=== PATIENT | female | born 1975 | race Caucasian/White ===

== ENCOUNTER 2019-06-04 09:41 | Emergency (ER) | payer BC, SELFPAY ==
--- NOTE | 2019-06-04 09:47 | ED.GENADULT ---
HPI - General Adult General Chief complaint: Urogenital-Female Stated complaint: pos uti Time Seen by Provider: 06/04/19 10:04 Source: patient Mode of arrival: ambulatory Limitations: no limitations Related Data Home Medications Medication Instructions Recorded Confirmed acetaminophen [Tylenol Arthritis 650 mg PO Q8H 02/24/19 06/04/19 Pain] albuterol sulfate [ProAir HFA] 2 puff INHALATION QID PRN 02/24/19 06/04/19 cholecalciferol (vitamin D3) 2,000 unit PO QID 02/24/19 06/04/19 [Vitamin D3] loratadine [Claritin] 10 mg PO DAILY 02/24/19 06/04/19 montelukast [Singulair] 10 mg PO DAILY 02/24/19 06/04/19 multivitamin 1 tablet PO DAILY 02/24/19 06/04/19 estradiol 0.1 mg DAILY 06/04/19 06/04/19 omeprazole 40 mg PO DAILY 06/04/19 06/04/19 topiramate 50 mg DAILY 06/04/19 06/04/19 Allergies Allergy/AdvReac Type Severity Reaction Status Date / Time adhesive tape Allergy Unknown BLISTERS Verified 06/04/19 09:55 Sulfa (Sulfonamide Allergy Unknown HIVES Verified 06/04/19 09:55 Antibiotics) Review of Systems Review of Systems: Narrative: CONSTITUTIONAL: Denies fever, chills, or sweats. EYES: Denies visual changes, redness, or discharge. ENT: Denies rhinorrhea, congestion, sore throat, or otalgia. CARDIOVASCULAR: Denies chest pain, palpitations, or edema. RESPIRATORY: Denies cough or dyspnea. GASTROINTESTINAL: Denies abdominal pain, nausea, vomiting, or diarrhea. GENITOURINARY: Denies dysuria or hematuria. SKIN: Denies rash or itching. MUSCULOSKELETAL: Denies back pain, joint pain, or myalgia. NEUROLOGIC: Denies headache, numbness, or weakness. PSYCHIATRIC: Denies anxiety or depression. [facility] Past Medical History Medical History Arthritis Asthma GERD (gastroesophageal reflux disease) RUDY (obstructive sleep apnea) Super obesity Social History Social History Gender identity (if verbalized by the patient): Female Comments At the time of my signature I agree with nursing past medical history, surgical, social, and family history. There is no relevant family history pertinent to the presenting complaint. Exam Narrative: Exam Narrative: GENERAL: Well-appearing, well-nourished, and in no acute distress. HEAD: Normocephalic, atraumatic. EYES: PERRLA and EOMI. ENT: Nares clear, no rhinorrhea or epistaxis. Mucous membranes moist. NECK: Supple. No lymphadenopathy CHEST: Clear to auscultation. No respiratory distress. HEART: Regular rate and rhythm. No murmur heard. Normal peripheral pulses. ABDOMEN: Soft, nontender, nondistended, normal active bowel sounds. EXTREMITIES: Normal range of motion. No edema. SKIN: Warm, dry, no rash. NEURO: No focal deficits. Alert and oriented x3. Course Vital Signs Vital signs: Vital Signs Temperature 36.0 C L 06/04/19 09:54 Pulse Rate 60 06/04/19 09:54 Respiratory Rate 16 06/04/19 09:54 Blood Pressure 133/69 06/04/19 09:54 Pulse Oximetry 100 06/04/19 09:54 Temperature 36.0 C L 06/04/19 09:54 Pulse Rate 60 06/04/19 09:54 Respiratory Rate 16 06/04/19 09:54 Blood Pressure 133/69 06/04/19 09:54 Pulse Oximetry 100 06/04/19 09:54 Vital signs reviewed. Medical Decision Making Differential Diagnosis Differential Diagnosis: Differential diagnosis: Uncomplicated lower UTI, uncomplicated UTI, pyelonephritis Vital Signs Vital Signs: Vital Signs Temperature 36.0 C L 06/04/19 09:54 Pulse Rate 60 06/04/19 09:54 Respiratory Rate 16 06/04/19 09:54 Blood Pressure 133/69 06/04/19 09:54 Pulse Oximetry 100 06/04/19 09:54 Temperature 36.0 C L 06/04/19 09:54 Pulse Rate 60 06/04/19 09:54 Respiratory Rate 16 06/04/19 09:54 Blood Pressure 133/69 06/04/19 09:54 Pulse Oximetry 100 06/04/19 09:54 Lab Data Labs: Urine Glucose Negative Reference Range: Negative Urine Bilirubin
[2019-06-04 09:54] VITALS: BP 133/69; PULSE 60; RESP 16; TEMP 36; O2SAT 100
== END 2019-06-04 10:15 | disposition home or self-care (01) ==
PROVIDERS: Emergency Provider Nurse Practitioner Family; PCP Internal Medicine
DX: R30.0 Dysuria (principal); M19.90 Unspecified osteoarthritis, unspecified site; J45.909 Unspecified asthma, uncomplicated; K21.9 Gastro-esophageal reflux disease without esophagitis; G47.33 Obstructive sleep apnea (adult) (pediatric); E66.9 Obesity, unspecified
CPT/HCPCS: 81003; 87086; 99213; G0463

== ENCOUNTER 2019-12-31 16:23 | Emergency (ER) | payer OTHER, SELFPAY ==
--- NOTE | ~2019-12-31 | XR_ITS ---
XR knee LT 3V DATE: 12/31/2019 16:45 INDICATION: Fall. Left knee injury, pain TECHNIQUE: 3 views COMPARISON: None FINDINGS: No fracture or dislocation or joint effusion is detected. There is prominent tricompartment osteoarthritis, involving particularly the medial and patellofemora l compartments. IMPRESSION: Tricompartment osteoarthritis Reviewed, dictated and finalized at location A.
--- NOTE | 2019-12-31 16:34 | ED.LOWEXIN ---
HPI - Extremity Injury (Lower) General Chief Complaint: Extremity Injury, Lower Stated Complaint: left knee pain fell Time Seen by Provider: 12/31/19 16:34 Source: patient and RN notes reviewed Mode of arrival: ambulatory Limitations: no limitations History of Present Illness HPI Narrative: 44-year-old female with history of obesity presents with concern for chronic left knee pain. Reports she has been seeing an orthopedic doctor for several years for her knee pain and receiving cortisone injections. Reports she recently changed doctors, and has an appointment to see a new orthopedic doctor later this week. Reports in the meantime she fell injuring her left knee. 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 Reports she cannot take NSAIDs due to having gastric bypass surgery. Reports she has been using ice. Denies any immobilization, compression, elevation. Reports she has been taking Tylenol for pain. She denies any bruising, reports swelling MD complaint: knee injury Related Data Home Medications Medication Instructions Recorded Confirmed acetaminophen [Tylenol Arthritis 650 mg PO Q8H 02/24/19 06/04/19 Pain] albuterol sulfate [ProAir HFA] 2 puff INHALATION QID PRN 02/24/19 06/04/19 cholecalciferol (vitamin D3) 2,000 unit PO QID 02/24/19 06/04/19 [Vitamin D3] loratadine [Claritin] 10 mg PO DAILY 02/24/19 06/04/19 montelukast [Singulair] 10 mg PO DAILY 02/24/19 06/04/19 multivitamin 1 tablet PO DAILY 02/24/19 06/04/19 estradiol 0.1 mg DAILY 06/04/19 06/04/19 omeprazole 40 mg PO DAILY 06/04/19 06/04/19 topiramate 50 mg DAILY 06/04/19 06/04/19 bupropion HCl mg PO 12/31/19 lorazepam 12/31/19 lorazepam 12/31/19 Allergies Allergy/AdvReac Type Severity Reaction Status Date / Time adhesive tape Allergy Unknown BLISTERS Verified 06/04/19 09:55 Sulfa (Sulfonamide Allergy Unknown HIVES Verified 06/04/19 09:55 Antibiotics) Review of Systems Review of Systems: Narrative: CONSTITUTIONAL: Denies malaise, chills, sweats, or fever. CARDIOVASCULAR: Denies chest pain, palpitations, or edema. RESPIRATORY: Denies cough or dyspnea. SKIN: Denies bruising, redness MUSCULOSKELETAL: Reports left knee pain NEUROLOGIC: Denies numbness, weakness All systems reviewed & are unremarkable except as noted in HPI and below PMFSH Past Medical History Medical History (Updated 12/31/19 @ 17:03 by Jillian Peterson NP) Arthritis Asthma GERD (gastroesophageal reflux disease) RUDY (obstructive sleep apnea) Super obesity Social History Social History Gender identity (if verbalized by the patient): Female Comments At time of signature, agree with nursing past medical, surgical, social and family history. There is no relevant family history pertinent to the presenting complaint Exam Narrative: Exam Narrative: GENERAL: Well-appearing, well-nourished, and in no acute distress. HEAD: Normocephalic EYES: PERRLA, conjunctivae clear NECK: Supple. CHEST: Speaks in full sentences. No respiratory distress. HEART: Regular rate and rhythm. Normal and equal peripheral pulses. EXTREMITIES: Left knee, left lower leg has normal strength and sensation, normal range of motion. No edema or ecchymosis. 5/5 strength with knee flexion and extension. Normal sensation with sensitivity to light touch and pain. Generalized tenderness. No open wounds, no skin tenting, no devitalized tissue or atrophy, no trophic changes, no obvious deformity, alignment normal, nearby joints and structures intact. Distal pulses palpable and equal bilaterally, skin warm, dry, pink. Capillary refill less than 3 seconds. SKIN: Warm, dry, no rash. NEURO: Alert and oriented x3. PSYCH: Normal mood and affect Course Course Emergency Course: Patient is aware of diagnosis, understands and agrees to treatment plan. Anticipatory
[2019-12-31 16:35] VITALS: BP 136/73; PULSE 77; RESP 20; TEMP 36.1; O2SAT 100
[2019-12-31 16:37] VITALS: BP 136/73; PULSE 77; RESP 20; TEMP 36.1; O2SAT 100
== END 2019-12-31 17:07 | disposition home or self-care (01) ==
PROVIDERS: Emergency Provider Nurse Practitioner
DX: M25.562 Pain in left knee (principal); M19.90 Unspecified osteoarthritis, unspecified site; J45.909 Unspecified asthma, uncomplicated; K21.9 Gastro-esophageal reflux disease without esophagitis; E66.9 Obesity, unspecified; Z68.42 Body mass index [BMI] 45.0-49.9, adult; Z98.84 Bariatric surgery status; G47.33 Obstructive sleep apnea (adult) (pediatric)
CPT/HCPCS: 73562; 99213; G0463

== ENCOUNTER 2020-03-19 00:32 | Outpatient (CLI) | payer OTHER, SELFPAY ==
[2020-03-19 19:42] LABS: SARS-CoV-2 RNA PCR Negative
== END 2020-03-19 00:33 | disposition home or self-care (01) ==
LOC: ANHCOVIDDT 00:32
PROVIDERS: PCP Internal Medicine; Visit Provider Podiatrist Foot & Ankle Surgery
DX: Z01.812 Encounter for preprocedural laboratory examination (principal); Z20.822 Contact with and (suspected) exposure to COVID-19
CPT/HCPCS: C9803; U0003

== ENCOUNTER 2020-03-22 00:44 | Day surgery (SDC) | payer OTHER, SELFPAY ==
[2020-03-13 15:11] VITALS: BMI 51.6
--- NOTE | ~2020-03-22 | XR_ITS ---
EXAMINATION: XR surgery orthopedic EXAM DATE: 03/22/2020 11:46 INDICATION: 5th metatarsal head resection left foot. TECHNIQUE: Fluoroscopy used during XR surgery orthopedic performed by Dr. Alli Sen JR MD. The DAP for this procedure was 0.21 cGycm2. FINDINGS: There is surgical defect, with resection of the left 5th metatarsal head. Correlate with procedure note. IMPRESSION: Fluoroscopy used during left foot surgery. Reviewed, dictated and finalized at location A. [employer]
--- NOTE | 2020-03-22 07:12 | WPDHPUPDATE1 ---
History and Physical Update Update Date/Time: 03/22/20 07:12 History and Physical has been reviewed, including an updated exam of the patient. There are NO changes in the patient's condition. Risks, benefits, and alternatives have been discussed and questions answered. Patient agrees to proceed with procedure.
--- NOTE | 2020-03-22 08:01 | WPDANESEPPF ---
Anes - Initial Pre Proc Eval Procedure: Operation Date: 03/22/20 12:00 Proposed Procedures p Fifth Metatarsal Head Resection Left Foot - Alli Sen JR, MD Date/Time: 03/22/20 08:01 Surgeon: Alli Sen JR, MD Pre Op Diagnosis: Carley's Bunion Left Foot Patient Data Age: 44 Gender: F Height: 1.68 m Weight: 145.15 kg Allergies Allergy/AdvReac Type Severity Reaction Status Date / Time Sulfa (Sulfonamide Allergy Severe HIVES Verified 03/22/20 09:51 Antibiotics) adhesive tape AdvReac Intermediate BLISTERS Verified 03/22/20 09:51 Home Medications Medication Instructions Recorded Confirmed Type acetaminophen [Tylenol Arthritis 650 mg PO Q8H 02/24/19 03/22/20 History Pain] albuterol sulfate [ProAir HFA] 2 puff INHALATION QID PRN 02/24/19 03/22/20 History cholecalciferol (vitamin D3) 2,000 unit PO BID 02/24/19 03/22/20 History [Vitamin D3] loratadine [Claritin] 10 mg PO DAILY 02/24/19 03/22/20 History montelukast [Singulair] 10 mg PO DAILY 02/24/19 03/22/20 History multivitamin 1 tablet PO DAILY 02/24/19 03/13/20 History omeprazole 40 mg PO DAILY 06/04/19 03/13/20 History topiramate 50 mg PO BID 06/04/19 03/13/20 History bupropion HCl 300 mg PO HS 12/31/19 03/22/20 History lorazepam 2 mg PO TID 12/31/19 03/22/20 History Patient hx anesthesia problems: none Family hx anesthesia problems: none PMFSH Past Medical History Medical History (Updated 03/21/20 @ 11:41 by Jose Ramon Taylor DO) Anxiety Arthritis Asthma BMI 45.0-49.9, adult BMI 50.0-59.9, adult Depression GERD (gastroesophageal reflux disease) RUDY (obstructive sleep apnea) Osteoarthritis of left knee Super obesity Family History Family History Mother Diabetes mellitus Father Hypertension Cerebrovascular accident Cancer Social History Social History Smoking status: Never smoker Alcohol intake: never Living arrangements: other Additional occupation/education comments: [employer] Gender identity (if verbalized by the patient): Female Spiritual care concerns: No Anes - Eval Final PreProcedure Day of Procedure 03/22/20 08:01 Patient weight: super morbidly obese Heart: regular rate and rhythm Lungs: clear to auscultation and normal air movement Airway: Mallampati scale class II Neurological: alert and oriented Last oral intake: >/= 8 hours ASA classification: III Emergent: no Anesthetic plan: proceed Anesthesia type and monitoring: general LMA and standard monitoring Informed Consent: The patient's anesthetic plan and its attendant risks and benefits were discussed with the patient/family/POA. Questions were solicited and answers provided to the satisfaction of the patient/family/POA.
[2020-03-22 09:43] VITALS: BP 124/73; PULSE 61; RESP 20; TEMP 36.4; O2SAT 100
[2020-03-22] MEDS: LACTATED RINGERS 1,000 ML 30 ML IV CONT (10:50)
[2020-03-22] MEDS: ceFAZolin 3 GM/D5W 100 ML 100 ML IVPB (11:17)
[2020-03-22] MEDS: LIDOCAINE HCL 2% LOCAL INJ 20 ML VIAL 10 ML INFILTRATE (11:29)
[2020-03-22] MEDS: BUPIVACAINE HCL 0.5% PF 30 ML VIAL 10 ML INFILTRATE (11:29)
[2020-03-22 11:50] VITALS: BP 127/88; PULSE 61; RESP 18; O2SAT 100
--- NOTE | 2020-03-22 11:56 | PM.PROC ---
Procedure Note - Detailed Date of procedure: 03/22/20 Pre-op diagnosis: Carley's Bunion Left Foot Post-op diagnosis: same Procedure performed: Fifth metatarsal head resection left foot Anesthesia: GLMA and local Surgeon: Alli Sen JR, MD Estimated blood loss (mL): 1 Drains: No Packing: No Pathology: none sent Complications: No immediate complications Condition: stable Disposition: same day Findings: Under mild sedation, the patient was brought to the operating room, placed on the operating table in the supine position. A pneumatic ankle tourniquet was placed about the patient's ankle. Following general anesthesia, I performed a proximal fifth metatarsal Carl Block. The foot was then scrubbed, prepped, and draped in the usual aseptic manner. An Esmarch bandage was then used to examine the patient's foot and pneumatic ankle tourniquet was then inflated. Surgery began in the following manner. Attention was directed to the dorsal lateral aspect of the fifth metatarsal head of the left foot where a 2 cm incision was made just lateral to the extensor digitorum longus tendon to the fifth digit. The incision was continued deep down through the subcutaneus tissues using sharp and blunt dissection. All bleeders were cauterized as necessary. A full-length periosteal incision was made overlying the fifth metatarsal distally. A McGlamry Elevator was used to free the plantar structures to the fifth metatarsal head. Next, a sagittal bone saw was used to make a transverse osteotomy starting along the dorsal aspect of the surgical neck of the 5th metatarsal extending plantarly. After this osteotomy was completed, the head of fifth metatarsal was removed from the operative site and placed on the back table. All rough edges were smoothed out with a bone rasp and rongeur. The wound site was then flushed with copious amounts of sterile saline. Fluoroscopy was used to make sure that no rough edges nor remnants of bone remained and also to make sure that adequate bone resection was performed. Next, the periosteum and capsular structures overlying the 5th metatarsophalangeal joints were reapproximated with 2-0 Vicryl. Next, subcutaneous structures were reapproximated and coapted utilizing 4-0 Vicryl. Next, the skin was reapproximated and coapted utilizing 4-0 Monocryl in running subcuticular suture fashion technique. Upon completion of the procedure, the incision was dressed with Steri-Strips, Adaptic, 4 x 4's, Kerlix, and Coban. The pneumatic ankle tourniquet was then deflated and a prompt hyperemic response noted to all digits of the foot. A surgical shoe was then applied. The patient did very well with the procedure and the anesthesia. She was transferred to the recovery room with vital signs stable and vascular status intact to all toes of the affected foot. Following a period of postoperative monitoring, the patient will be discharged home on the following written and oral postoperative instructions: 1. Keep the dressing clean, dry, and intact. Use a cast protector bag with showers. 2. The patient should use a surgical shoe for ambulation postoperatively. 3. The patient should ice and elevate the affected foot when at rest. 4. The patient to contact Dr. Sen for all postop care and if any problems arise. 5. Prescriptions were written for Percocet 5/325 dispensed 40 to be taken 1 p.o. q.4 to 6 hours as needed for severe pain.
[2020-03-22 12:20] VITALS: BP 125/83; PULSE 62; RESP 20; O2SAT 100
[2020-03-22 12:50] VITALS: BP 141/84; PULSE 55; RESP 20
[2020-03-22] MEDS: oxyCODONE/ACETAMINOPHEN (*CRX) 5-325 MG TABLET 1 TABLET PO (12:53)
[2020-03-22] MEDS: fentaNYL CITRATE INJ (*CRX) 100 MCG/2 ML VIAL 25 MCG IV PUSH ×4 (12:54→13:25)
[2020-03-22 13:20] VITALS: BP 143/78; PULSE 57; RESP 20
--- NOTE | 2020-03-22 13:49 | SUR.PHASEII ---
1340; PT AWAKE AND ALERT. STATES PAIN TOLERABLE AND READY TO GO HOME.
== END 2020-03-22 13:49 | disposition home or self-care (01) ==
PROVIDERS: PCP Internal Medicine; Visit Provider Podiatrist Foot & Ankle Surgery
PROC: (CPT 28104; principal; 2020-03-22 12:00)
DX: M21.622 Bunionette of left foot (principal); Z79.51 Long term (current) use of inhaled steroids; F41.9 Anxiety disorder, unspecified; M19.90 Unspecified osteoarthritis, unspecified site; J45.909 Unspecified asthma, uncomplicated; F32.9 Major depressive disorder, single episode, unspecified; K21.9 Gastro-esophageal reflux disease without esophagitis; G47.33 Obstructive sleep apnea (adult) (pediatric); E66.01 Morbid (severe) obesity due to excess calories; Z68.43 Body mass index [BMI] 50.0-59.9, adult
CPT/HCPCS: 28110; A9270; C9803; J0690; J2250; J2405; J2704; J3010; J7120; U0003

== ENCOUNTER 2024-06-17 11:45 | Emergency (ER) | payer OTHER, SELFPAY ==
--- NOTE | ~2024-06-17 | XR_ITS ---
EXAMINATION: XR foot RT min 3V DATE: 06/17/2024 12:20 INDICATION: Blunt trauma to the right foot TECHNIQUE: Dorsoplantar, two oblique and lateral views of the right foot were obtained. COMPARISON: 02/20/2017 FINDINGS: Bone alignment is normal. Interval healing of the previously seen dorsal cortical avulsion fracture a t the navicula. No acute fracture. Mild polyarticular osteoarthritis involving the first metatarsopha langeal, the naviculocuneiform and multiple tarsometatarsal and interphalangeal joints. Moderate-size d Achilles and plantar calcaneal spurs. IMPRESSION: 1. Degenerative changes at the right foot including mild polyarticular osteoarthritis and moderate-si zed calcaneal enthesophytes. No acute osseous abnormality. Reviewed, dictated and finalized at location A. IMPRESSION: 1. Degenerative changes at the right foot including mild polyarticular osteoart hritis and moderate-sized calcaneal enthesophytes. No acute osseous abnormality .
[2024-06-17 12:06] VITALS: BP 176/84; PULSE 67; RESP 16; TEMP 36.3; O2SAT 100
--- NOTE | 2024-06-17 12:51 | ED.LOWEXIN ---
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 Patient has pain to the right dorsal foot and to the right great toe area with bruising and swelling noted. Patient reports that she had previous fracture to her right foot in 2018. Patient reports pain with movement of foot and with attempted weight bearing, pedal pulse palpable to right foot.Patient has had gastric sleeve procedure and can not take any Ibuprofen or NSAIDS. Onset (ago): day(s) (last evening at 2200) Injury: Right: foot (dorsal right foot) and toes (great toe area) Type of Injury: blunt Place: home Severity scale (1-10): 9 Treatments prior to arrival: cold therapy and other (elevation and Tylenol) Related Data Home Medications ?Medication ?Instructions ?Recorded ?Confirmed ?Last Taken ?Type acetaminophen 650 mg 650 mg PO Q8H 02/24/19 04/17/24 03/21/20 History tablet,extended release (Tylenol Arthritis Pain) albuterol sulfate 90 mcg/actuation 2 puff inhalation QID PRN 02/24/19 04/17/24 1 Day Ago History aerosol inhaler (ProAir HFA) Shortness Of Breath Or Wheezing ~03/01/19 cholecalciferol (vitamin D3) 50 2,000 unit PO BID 02/24/19 04/17/24 03/17/20 History mcg (2,000 unit) capsule (Vitamin D3) loratadine 10 mg tablet (Claritin) 10 mg PO DAILY 02/24/19 04/17/24 03/22/20 History montelukast 10 mg tablet 10 mg PO DAILY 02/24/19 04/17/24 03/21/20 History (Singulair) multivitamin 1 tablet PO DAILY 02/24/19 04/17/24 3 Days Ago History ~02/27/19 omeprazole 40 mg capsule,delayed 40 mg PO DAILY 06/04/19 04/17/24 Unknown History release topiramate 50 mg tablet 50 mg PO BID 06/04/19 04/17/24 Unknown History bupropion HCl 300 mg 24 hr tablet, 300 mg PO HS 12/31/19 04/17/24 03/21/20 History extended release lorazepam 2 mg tablet 2 mg PO TID 12/31/19 04/17/24 03/22/20 07:45 History estradiol 2 mg tablet 2 mg PO DAILY 01/03/24 04/17/24 Unknown History nifedipine 30 mg tablet,extended 30 mg PO DAILY 01/03/24 04/17/24 Unknown History release rimegepant 75 mg disintegrating 75 mg PO ONCE PRN 04/17/24 04/17/24 Unknown History tablet (Nurtec ODT) Allergies Allergy/AdvReac Type Severity Reaction Status Date / Time Sulfa (Sulfonamide Allergy Severe HIVES Verified 06/17/24 12:02 Antibiotics) adhesive tape AdvReac Intermediate BLISTERS Verified 06/17/24 12:02 Review of Systems Review of Systems: CONSTITUTIONAL: Denies fever, chills, or sweats. EYES: Denies visual changes, redness, or discharge. ENT: Denies rhinorrhea, congestion, sore throat, or otalgia. CARDIOVASCULAR: Denies chest pain, palpitations, or edema. RESPIRATORY: Denies cough or dyspnea. GASTROINTESTINAL: Denies abdominal pain, nausea, vomiting, or diarrhea. GENITOURINARY: Denies dysuria or hematuria. SKIN: Denies rash or itching. MUSCULOSKELETAL: Denies back pain, Reports pain to the dorsal right foot and great toe region after having a scooter fall on her foot last night at 2200. swelling and ecchymosis noted., or myalgia. NEUROLOGIC: Denies headache, numbness, or weakness. PSYCHIATRIC: Reports history of anxiety or depression. All systems reviewed & are unremarkable except as noted in HPI and below PMFSH Past Medical History Medical History (Updated 06/19/24 @ 12:09 by Constance Pandey NP) Hx of migraines Hypertension Contusion of right foot Depression Anxiety BMI 50.0-59.9, adult Osteoarthritis of left knee BMI 45.0-49.9, adult Super obesity Arthritis GERD (gastroesophageal reflux disease) RUDY (obstructive sleep apnea) Asthma Surgical History Surgical History (Updated 06/19/24 @ 11:52 by Constance Pandey NP) History of tonsillectomy H/O shoulder surgery right [place] teeth extracted H/O: hysterectomy H/O gastric sleeve Family History Family History Mother Diabetes mellitus Father Hypertension Cerebrovascular accident Cancer Social History Social History Smoking status: Never smoker Alcohol intake: never Substance use: unknown Do You Feel Safe in your Home?: Yes Lack of Transportation: No Lack of Food: Never True Current Housing: I Have Housing Concerned About Future Housing: No Difficulty Paying Gas/Electric Bills: YES Difficulty Paying for Meds: YES Currently Unemployed: No Education: Trade/Vocational Certificate Difficulty w/ Childcare or Family Care: No Living arrangements: other Occupation/Education: occupation Additional occupation/education comments: [employer] Gender identity (if verbalized by the patient): Female Spiritual care concerns: No Comments At time of signature, agree with nursing past medical, surgical, social and family history. There is no relevant family history pertinent to the presenting complaint Exam Narrative: GENERAL: Well-appearing, well-nourished,morbid obese, and in some acute distress related to her foot pain. HEAD: Normocephalic, atraumatic. EYES: PERRLA and EOMI. ENT: Nares clear, no rhinorrhea or epistaxis. Mucous membranes moist.TM's normal, throat pink with tonsils absent NECK: Supple. no lymphadenopathy CHEST: Clear to auscultation. No respiratory distress.no cough or congestion noted SAO2 100% on room air HEART: Regular rate and rhythm. No murmur heard. Normal peripheral pulses. ABDOMEN: Soft, nontender, nondistended, normal active bowel sounds. EXTREMITIES: Normal range of motion. No edema.Exception noted to right dorsal foot and great toe region with pain swelling and ecchymosis from blunt trauma to her foot, pedal pulse palpable right foot, denies any tingling or numbness, pain with movement of right foot and reports inability to bear full weight to right foot. SKIN: Warm, dry, no rash. NEURO: No focal deficits. Alert and oriented x3. Course Course Emergency Course: Patient is aware of diagnosis, understands and agrees to treatment plan.? Anticipatory guidance given.? Patient agrees to follow-up as directed and is aware of reasons to seek care at the emergency department. Portions of this record may have been created with voice recognition software Level of Care: Express Care Visit Vital Signs Vital signs: Vital Signs Temperature 36.3 C L 06/17/24 12:06 Pulse Rate 67 06/17/24 12:06 Respiratory Rate 16 06/17/24 12:06 Blood Pressure 176/84 H 06/17/24 12:06 Pulse Oximetry 100 06/17/24 12:06 Temperature 36.3 C L 06/17/24 12:06 Pulse Rate 67 06/17/24 12:06 Respiratory Rate 16 06/17/24 12:06 Blood Pressure 176/84 H 06/17/24 12:06 Pulse Oximetry 100 06/17/24 12:06 Reviewed MDM - Extremity Injury (Lower) Differential Diagnosis Differential diagnosis: Likely fracture of toe and other (foot fracture, contusion to right foot, pain right foot) Medical Records Attestation: I reviewed the patient's medical records. Imaging Data Attestation: I personally reviewed and interpreted this imaging study as follows: My impression: Degenerative changes to right foot including mild polyarticular osteoarthritis and moderate sized calcaneal enthesophytes. No fracture Radiologist's impression: [facility] [address] [place] [address] XRay Report Signed Patient: Yumiko Chowdhury : 1975 MR#: [id number] Age: 48 Acct:[id number] Loc: [facility] ADM Date: 06/17/24Attending Dr: Ordering Physician: Constance Pandey APRN Date of Service: 06/17/24 Procedure(s): XR foot RT min 3V Accession Number(s): [id number] cc: aWnder, Jackson Trimble MD; Constance Pandey APRN~ EXAMINATION: XR foot RT min 3V DATE: 06/17/2024 12:20 INDICATION: Blunt trauma to the right foot TECHNIQUE: Dorsoplantar, two oblique and lateral views of the right foot were obtained. COMPARISON: 02/20/2017 FINDINGS: Bone alignment is normal. Interval healing of the previously seen dorsal cortical avulsion fracture at the navicula. No acute fracture. Mild polyarticular osteoarthritis involving the first metatarsophalangeal, the naviculocuneiform and multiple tarsometatarsal and interphalangeal joints. Moderate-sized Achilles and plantar calcaneal spurs. IMPRESSION: 1. Degenerative changes at the right foot including mild polyarticular osteoarthritis and moderate-sized calcaneal enthesophytes. No acute osseous abnormality. Reviewed, dictated and finalized at location A. Please be advised this is a medical document. It is intended for [id number] communication. It is written in medical language and may contain unfamiliar abbreviations or verbiage. Medical documents are intended to carry relevant information, facts as evident, and the clinical opinion of the practitioner at the time of the encounter. This report may have been done utilizing a voice recognition system. Attempts have been made to correct errors. However, there may be uncorrected grammatical, spelling, and recognition errors present. The file time of this note does not necessarily represent the time of service. Dictated By: Alton Torres MD 06/17/24 1222 Signed By: <Electronically signed by Alton Torres MD in OV> Critical Care Time Critical Care Time Critical Care Time: No Discharge Plan Discharge Clinical Impression: Contusion of foot, right Qualifiers: Encounter type: initial encounter Qualified Code(s): S90.31XA - Contusion of right foot, initial encounter Patient Disposition: Home Condition: Stable Instructions: Antibiotic Form, Contusion in Adults (ED) Additional Instructions: Elastic wrap or orthopedic splint as directed for comfort for the next 5-7 days Walker or crutches as directed for the next few days Tylenol for lesser pain Use the medication as provided for severe pain--caution each tablet contains 325 mg of Tylenol--the maximum dose of Tylenol is 4000 mg in 24 hours. 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 Follow-up with PCP in 7-10 days or sooner if needed Follow up with PCP soon in regards to your blood pressure which is elevated above threshold for referral. Blood pressure above 120/80 may indicate pre-hypertension. 176/84 Patient Language: Portuguese Prescriptions: New hydrocodone-acetaminophen 7.5-325 mg tablet 1 tablet PO Q6H PRN (Reason: pain) Qty: 10 0RF No Action lorazepam 2 mg tablet 2 mg PO TID bupropion HCl 300 mg tablet extended release 24 hr 300 mg PO HS omeprazole 40 mg capsule,delayed release(DR/EC) 40 mg PO DAILY topiramate 50 mg tablet 50 mg PO BID estradiol 2 mg tablet 2 mg PO DAILY nifedipine 30 mg tablet extended release 30 mg PO DAILY Nurtec ODT 75 mg tablet,disintegrating 75 mg PO ONCE PRN Rx Instructions: as a single dose acetaminophen [Tylenol Arthritis Pain] 650 mg Tablet Extended Release 650 mg PO Q8H multivitamin Tablet 1 tablet PO DAILY montelukast [Singulair] 10 mg Tablet 10 mg PO DAILY albuterol sulfate [ProAir HFA] 90 mcg/actuation Hfa Aerosol Inhaler 2 puff INHALATION QID PRN (Reason: Shortness Of Breath Or Wheezing) loratadine [Claritin] 10 mg Tablet 10 mg PO DAILY cholecalciferol (vitamin D3) [Vitamin D3] 50 mcg (2,000 unit) Capsule 2,000 unit PO BID Follow-up/Referrals: Wander,Jackson Trimble MD [Primary Care Provider] - Stand Alone Forms: Work/School Release IP Time of Disposition: 13:13 Quality [place] Coma Scale Eyes: Open Verbal: Oriented and Alert Motor: Follows Commands [place] Coma Total Score: 15
== END 2024-06-17 13:23 | disposition home or self-care (01) ==
PROVIDERS: Emergency Provider Registered Nurse; PCP Internal Medicine
DX: S90.31XA Contusion of right foot, initial encounter (principal); S90.111A Contusion of right great toe without damage to nail, initial encounter; W20.8XXA Other cause of strike by thrown, projected or falling object, initial encounter; I10 Essential (primary) hypertension; K21.9 Gastro-esophageal reflux disease without esophagitis; J45.909 Unspecified asthma, uncomplicated; M17.12 Unilateral primary osteoarthritis, left knee; F41.9 Anxiety disorder, unspecified; F32.A Depression, unspecified; E66.01 Morbid (severe) obesity due to excess calories; Z68.43 Body mass index [BMI] 50.0-59.9, adult; Z98.84 Bariatric surgery status
CPT/HCPCS: 73630; 99213; G0463